=== PATIENT | female | born 1950 | race Caucasian/White ===

== ENCOUNTER → 2020-04-06 | Outpatient (CLI) | payer OTHER ==
[~2020-04-06] MED LIST: B COMPLEX1 EACH PO; CALCIUM500 MG PO; FISH OIL 1,0001 EAC9 PO; LOPRESSOR50 MG PO; NORVASC10 MG PO; VITAMIN D310 MC1 PO; VITAMIN K240 MCG PO; ZETIA10 MG PO
== END ==
LOC: LAB 12:37
PROVIDERS: ATTEND Orthopaedic Surgery
DX: Z01.812 Encounter for preprocedural laboratory examination (principal); Z20.828 Contact with and (suspected) exposure to other viral communicable diseases

== ENCOUNTER 2020-04-11 08:23 | Observation (INO) | payer OTHER ==
[2020-04-06 11:28] LABS: URINE BILIRUBIN NEGATIVE (Negative); URINE BLOOD NEGATIVE (Negative); URINE CLARITY CLEAR; URINE COLOR YELLOW; URINE GLUCOSE-RANDOM* NEGATIVE (Negative); URINE KETONES NEGATIVE (Negative); URINE LEUKOCYTES-REFLEX TRACE (Negative); URINE NITRITE-REFLEX NEGATIVE (Negative); URINE PROTEIN (DIPSTICK) NEGATIVE (Negative); URINE UROBILINOGEN 0.2 E.U./dl (0.2-1.0)
[2020-04-06 11:34] LABS: HEMATOCRIT 43.2 % (37.0-47.0); HEMOGLOBIN 14.6 gm/dL (12.0-15.0); MCH 28.8 pg (26.0-34.0); MCHC 33.7 g/dL (28.0-37.0); MCV 85.5 fL (80.0-100.0); RBC 5.05 mil/uL (4.20-5.00)
[2020-04-06 11:38] LABS: ALBUMIN 3.9 g/dL (3.4-5.0); CALCIUM 9.5 mg/dL (8.5-10.1); CREATININE 0.8 mg/dL (0.6-1.0); POTASSIUM 4.1 mmol/L (3.5-5.1)
[2020-04-06 11:51] LABS: PROTIME 9.4 Seconds (9.3-11.4)
--- NOTE | 2020-04-06 12:38 | EKG ---
[facility] [place] [address] ELECTROCARDIOGRAM REPORT Name: ANTOINE SHARMA Room #: [facility] IN ..#: [id number] Admission: Attend Phys: Benigno Andrade MD Discharge: Date of : 52 Report #: [id number] THIS REPORT FOR: cc: FAM - Family physician unknown FAM - Family physician unknown Elias Hunter MD [facility] ~ THIS REPORT FOR: //name// [facility] Test Date: 2020-04-06 Test Time: 11:33:30 Pat Name: ANTOINE SHARMA Department: Room: Gender: F Law Writer: Gissel ALTAMIRANO : 1950 Requested By: Benigno Andrade Order Number: [id number] MD: Elias Hunter Measurements Intervals Gilead Rate: 59 P: 20 SC: 195 QRS: -20 QRSD: 103 T: 24 QT: 436 QTc: 432 Interpretive Statements Sinus rhythm Inferior infarct, old Poor R-wave progression V1-3 No previous ECG available for comparison Electronically Signed On 04-06-2020 12:37:56 CDT by Elias Hunter [email or web address] <ELECTRONICALLY SIGNED> By: Elias Hunter MD, FACC 04/06/20 1237 1133 1133 Elias Hunter MD, [facility] /EPI
[2020-04-07 03:06] LABS: GLYCOHEMOGLOBIN (HGB A1C) 6.5 % (4.8-5.6)
[~2020-04-11] VITALS: Ht 157.5 cm; Wt 100.7 kg
[2020-04-11 13:55] VITALS: BP 172/78
[2020-04-11 18:40] VITALS: BP 167/60
[2020-04-11 23:49] VITALS: BP 149/57
--- NOTE | 2020-04-12 02:36 | NUR ---
PT CARE ASSUMED WITH PT IN BED WATCHING TV.PT IS A/O X4.PT HAD A RIGHT TKR DONE.PT WANTS JUST HYDROCODONE FOR PAIN MANAGEMENT.PT HAS A LYUDMILA DRESSING,POLAR PACE AND TEDHOSE AND SCDS.PT USED A BEDPAN FOR ELIMANATION AND CALLS APPROPRIETELY FOR HELP.PT IS ON A REGULAR DIET.PT DENIED NAUSEA AND APPEARED TO BE IN NO ACUTE DISTRESS.PATIENT HAS PT/OT TODAY.WILL CONTINUE TO MONITOR POC
[2020-04-12 03:39] VITALS: BP 152/57
[2020-04-12 05:22] LABS: HEMATOCRIT 39.3 % (37.0-47.0); HEMOGLOBIN 12.9 gm/dL (12.0-15.0); MCH 28.3 pg (26.0-34.0); MCHC 32.7 g/dL (28.0-37.0); MCV 86.7 fL (80.0-100.0); RBC 4.53 mil/uL (4.20-5.00); RDW 13.7 % (10.5-14.5); WBC 15.7 thou/uL (4.0-11.0)
[2020-04-12 08:35] VITALS: BP 130/51
--- NOTE | 2020-04-12 08:43 | NUR ---
cm completed the initial assessment to discuss d/c planning. pt alert and oriented. pt lives at home w/spouse and MIL. pt is semi-active. gets ut in the community. pt drives, actived, retired and independent w/adls. pt has 0 dmes. pt denies hx w/snf. pt used hh in the past, but doesnt recall which company. pt has adequate support, "we can always find somebody to help." cm to cont to follow.
[2020-04-12 12:35] VITALS: BP 152/57
--- NOTE | 2020-04-12 13:13 | NUR ---
PT IS AOX4, VSS, PAIN CONTROLLED WITH ORAL ANALGESIC. PT AMBULATES WITH WALKER, APPETITE GOOD NO N/V. DRESSING CDI, POLAR ICE, [facility] ON PT. DISCHARGE INFORMATION RECEIVED. IV TAKEN OUT, TRANSFERRED TO CAR BY WHEELCHAIR. BELONGINGS SENT HOME WITH PT.
--- NOTE | 2020-04-13 10:47 | O ---
[address] [address] OPERATIVE REPORT Name: ANTOINE SHARMA Room #: [address] [facility] Kendrick Sanford#: [id number] Admission: 04/11/20 Attend Phys: Benigno Andrade MD Discharge: 04/12/20 Date of : 52 Report #: [id number] THIS REPORT FOR: cc: [facility] - Family physician unknown FAM - Family physician unknown Benigno Andrade MD ~ CC: [facility] unknown KRISTY Andrade DATE OF SERVICE: 04/11/2020 PREOPERATIVE DIAGNOSES: 1. Right knee osteoarthritis. 2. Retained hardware, right knee, from previous ACL reconstruction. POSTOPERATIVE DIAGNOSES: 1. Right knee osteoarthritis. 2. Retained hardware, right knee, from previous ACL reconstruction. PROCEDURES: 1. Right total knee arthroplasty using Navio robotic assistant professor of life sciences. 2. Hardware removal, deep from the right tibia. SURGEON: Benigno Andrade MD. ASSEMBLER GARMENT FORM: Ashley Leblanc PA-C. INDICATIONS FOR ASSEMBLER GARMENT FORM: Throughout the case, extensive retraction and manipulation of the knee was required. This was afforded to me by my assistant professor of life sciences. ANESTHESIA: LMA with an adductor canal block. IMPLANTS: [employer] size 5, Journey II BCS cobalt chrome femur, size 4 tibia, size 13 polyethylene, size 29 patella. TOURNIQUET TIME: 65. ESTIMATED BLOOD LOSS: 25 mL. COMPLICATIONS: None. SPECIMENS: None. CONDITION UPON LEAVING THE OPERATING ROOM: Stable. [address] [address] OPERATIVE REPORT Name: ANTOINE SHARMA Room #: [address] [facility] Kendrick Sanford#: [id number] Admission: 04/11/20 Attend Phys: Benigno Andrade MD Discharge: 04/12/20 Date of : 52 Report #: [id number] INDICATIONS FOR PROCEDURE: The patient is a 70-year-old female with right knee osteoarthritis. She had failed conservative measures for this and after discussion with her, she elected for right total knee arthroplasty. In addition, she previously had an ACL reconstruction with metallic interference screws in the femur and the tibia. We discussed the potential need for screw removal depending on implant placement. DESCRIPTION OF PROCEDURE: Risks, benefits, alternatives, complications were discussed in detail with the patient including but not limited to risk of anesthesia, risk of damage to nerves, arteries, blood vessels, risk for infection, bleeding, risk for continued knee pain, need for reoperation. Informed consent was obtained from the patient. Right knee was appropriately marked in the preoperative holding area. IV Ancef was given for preoperative antibiotics. Adductor canal block was placed by Anesthesia. She was brought to the operating room and placed in supine position on operating room table. LMA anesthesia was induced without complication. Tourniquet was placed on the right thigh. Right lower extremity was prepped and draped in normal sterile fashion. Timeout was performed properly identifying the patient and procedure as well as the instrumentation and implants. All in the operating room were in agreement. Right lower extremity was exsanguinated, tourniquet was inflated. Tourniquet time was 65 minutes. Standard midline approach to the knee was made with 10 blade through the skin. Dissection was taken down sharply to the fascia and deep flaps were developed medially and laterally. Fresh 10 blade was used to make a medial parapatellar arthrotomy and the knee was inspected. There was severe tricompartmental osteoarthritis. ACL and PCL were removed sharply. Reference pins were placed in the femur and the tibia. The knee was then digitally mapped using the [address] robotic system. Intraoperative plan was made and we sized the size 5 femur with a size 4 tibia and a 10 spacer. After acceptance of the intraoperative plan, the distal femoral cut was made with a Navio bur. Distal femoral cutting block was pinned in place and distal femoral chamfer cuts were made. Attention was then turned to the tibia. Remainder of the menisci removed with Bovie cautery. Tibial resection guide was pinned in place using the Navio for placement. Tibial resection was then partially made and we encountered the tibial interference screw. This was dissected out and removed with a screwdriver. The remainder of the tibial cut was then made. After this, flexion and extension gaps were checked and found to have good balance in flexion and extension both medially and laterally. Tibia was sized, found to be a size 4. Size 4 tibial trial was placed, pinned and punched. A size 5 femoral trial was placed and the box cut was made. This was then trialed with a size 10 up to a size 13 polyethylene and size 13 polyethylene demonstrated 1-2 millimeter of laxity medially and laterally throughout range of motion of the knee. After this, 9 mm was resected from the posterior surface of the patella and a size 29 patellar trial button was placed. Knee was taken through range of motion, found to be stable, found to have good patellar tracking. Trial components were removed. Bony ends were thoroughly irrigated with normal saline. Final size 4 tibia, size 5 Journey II BCS cobalt chrome [facility] [address] [place] [address] OPERATIVE REPORT Name: ANTOINE SHARMA Room #: 440-P [facility] Kendrick Sanford#: [id number] Admission: 04/11/20 Attend Phys: Benigno Andrade MD Discharge: 04/12/20 Date of : 52 Report #: [id number] femur and a size 29 patella were then cemented in place using standard cementation techniques. While the cement cured, periarticular injection consisting of morphine, ropivacaine, epinephrine and Toradol was placed around the knee joint capsule. After the cement cured, tourniquet was deflated. Hemostasis was obtained with Bovie cautery. Final size 13 polyethylene was placed and a gram of vancomycin was placed deep in the joint. Fascia was closed with 0 Vicryl, skin was closed with 2-0 Vicryl, skin staple and a LYUDMILA dressing was applied. The patient tolerated this procedure well and went to recovery room under care of anesthesia postoperatively. <ELECTRONICALLY SIGNED> By: Benigno Andrade MD 04/13/20 1047 1725 1745 Benigno Andrade MD /nt
== END 2020-04-12 13:17 | disposition home or self-care (01) ==
LOC: PRE 08:23 → TBA 13:26 → 4S 13:26
PROVIDERS: ADMIT Orthopaedic Surgery; ATTEND Orthopaedic Surgery
DX: M17.11 Unilateral primary osteoarthritis, right knee (principal); Z47.2 Encounter for removal of internal fixation device; I10 Essential (primary) hypertension; E11.9 Type 2 diabetes mellitus without complications; M10.9 Gout, unspecified; E66.9 Obesity, unspecified; E78.00 Pure hypercholesterolemia, unspecified; Z79.84 Long term (current) use of oral hypoglycemic drugs; Z79.899 Other long term (current) drug therapy; Z68.41 Body mass index [BMI] 40.0-44.9, adult
CPT/HCPCS: 10102; 50010; 50101; 50415; 50954; 51130; 51225; 51320; 51412; 52001; 52282; 53000; 53078; 56527; 56528; 57095; 57103; 57110; 57127; 57180; 58239; 62110; 62900; 64042; 70005

== ENCOUNTER → 2020-05-10 | Outpatient (CLI) | payer OTHER | LOC: ULTRA 09:06 | PROVIDERS: ATTEND Orthopaedic Surgery | DX: M79.89 Other specified soft tissue disorders (principal) ==